=== PATIENT | female | born 1965 | race African-American/Black ===

== ENCOUNTER → 2017-01-04 | Outpatient (CLI) | payer BC ==
[~2017-01-04] MED LIST: IRON325 ( 65 ) PO; MICRO-K PO; TRIAMTERENE/HCTZ PO
--- NOTE | ~2017-01-04 | CR21 ---
[facility] A Service of [facility] & [facility] RADIOLOGY TEXT RESULTS PATIENT: DARRYL MENG LOCATION: [facility] : 67 UNIT #: [id number] AGE: [address]: LAUREN MARCUS SEX: F ORDER DR: [id number] [facility] [address] [place], [place] [address] [id number] O MR#: [id number] Acc #: [id number] NAME: DARRYL MENG : 1965 SEX: F STUDY DATE/TIME: 01/04/2017 13:54 UNIT: [facility] ROOM: STUDY DESCRIPTION: CR Ankle Min 3 Views Rt Attending Physician: Lauren Marcus Aprn Referring Physician: Lauren Marcus Aprn Ordering Physician: Lauren Marcus Aprn Primary Care Physician: Lauren Marcus Aprn MEDICAL IMAGING REPORT This report is preliminary unless electronic signature is present EXAM Right ankle, 3 views, 01/04/2017. HISTORY Right ankle pain and swelling for 1 month. No known injury. FINDINGS Three views of the right ankle demonstrate no fracture. Ankle mortise is intact and the bones are normally mineralized. There is a 5 mm plantar calcaneal spur. Diffuse soft tissue swelling is seen about the right ankle. IMPRESSION Soft tissue swelling about the right ankle. No evidence of fracture. Dictated by... Oliver Pacheco M.D. THIS IS AN ELECTRONICALLY VERIFIED REPORT Oliver Pacheco M.D. at 01/05/2017 2:14 PM BELLA/alin TD: 01/05/2017 00:40 JOB #: [id number] MEDICAL IMAGING REPORT Page 1 of 1 COPY
--- NOTE | ~2017-01-04 | CR127 ---
[facility] A Service of [facility] & [facility] RADIOLOGY TEXT RESULTS PATIENT: DARRYL MENG LOCATION: [facility] : 67 UNIT #: [id number] AGE: [address]: LAUREN MARCUS SEX: F ORDER DR: [id number] [facility] [address] [place], [place] [address] [id number] O MR#: [id number] Acc #: [id number] NAME: DARRYL MENG : 1965 SEX: F STUDY DATE/TIME: 01/04/2017 13:53 UNIT: [facility] ROOM: STUDY DESCRIPTION: CR Foot Complete Min 3 View Rt Attending Physician: Lauren Marcus Aprn Referring Physician: Lauren Marcus Aprn Ordering Physician: Lauren Marcus Aprn Primary Care Physician: Lauren Marcus Aprn MEDICAL IMAGING REPORT This report is preliminary unless electronic signature is present EXAM Right foot, 3 views, 01/04/2017. HISTORY Right foot pain and difficulty walking for 1 month. No known injury. FINDINGS Three views of the right foot demonstrate no fracture. The bones are normally mineralized. The joint spaces are normally maintained. There is a 5 mm plantar calcaneal spur. IMPRESSION Small plantar calcaneal spur. No acute abnormality. Dictated by... Oliver Pacheco M.D. THIS IS AN ELECTRONICALLY VERIFIED REPORT Oliver Pacheco M.D. at 01/05/2017 2:14 PM KRT/alin TD: 01/05/2017 00:39 JOB #: [id number] MEDICAL IMAGING REPORT Page 1 of 1 COPY
--- NOTE | ~2017-01-04 | CR170 ---
[facility] A Service of [facility] & [facility] RADIOLOGY TEXT RESULTS PATIENT: DARRYL MENG LOCATION: [facility] : 67 UNIT #: [id number] AGE: [address]: LAUREN MARCUS SEX: F ORDER DR: [id number] [facility] [address] [place], [place] [address] [id number] O MR#: [id number] Acc #: [id number] NAME: DARRYL MENG : 1965 SEX: F STUDY DATE/TIME: 01/04/2017 13:53 UNIT: [facility] ROOM: STUDY DESCRIPTION: CR Knee 2 Views Rt Attending Physician: Lauren Marcus Aprn Referring Physician: Lauren Marcus Aprn Ordering Physician: Lauren Marcus Aprn Primary Care Physician: Lauren Marcus Aprn MEDICAL IMAGING REPORT This report is preliminary unless electronic signature is present EXAM Right knee 2 views, 01/04/2017. HISTORY Right knee pain and difficulty walking for 1 month. No known injury. Right knee swelling. FINDINGS Three views of the right knee demonstrate no fracture. There is degenerative change with small osteophytes along the posterior aspect of the patella as well as subchondral cyst formation. The joint space is normally maintained. There is a small knee joint effusion. IMPRESSION 1. No evidence of fracture. 2. Degenerative change involving the patellofemoral joint. 3. Small knee joint effusion. Dictated by... Oliver Pacheco M.D. THIS IS AN ELECTRONICALLY VERIFIED REPORT Oliver Pacheco M.D. at 01/05/2017 2:14 PM BELLA/alin TD: 01/05/2017 00:37 JOB #: [id number] MEDICAL IMAGING REPORT Page 1 of 1 COPY
== END | disposition home or self-care (01) ==
LOC: CRAD 13:34
DX: M17.11 Unilateral primary osteoarthritis, right knee (principal); M10.372 Gout due to renal impairment, left ankle and foot; M25.461 Effusion, right knee; M25.471 Effusion, right ankle; M77.31 Calcaneal spur, right foot
CPT/HCPCS: 73560; 73610; 73630